=== PATIENT | female | born 1965 | race Caucasian/White ===

== ENCOUNTER 2017-08-04 04:01 | Emergency (ER) | payer OTHER | END 2017-08-04 07:20 | disposition home or self-care (01) | LOC: FTE 04:01 | DX: R05 Cough (principal) | CPT/HCPCS: 99284; Z7502 ==

== ENCOUNTER 2018-05-31 08:51 | Day surgery (SDC) | payer OTHER ==
[2018-05-31] MEDS ORDERED: MIDAZOLAM 1 MG/ML 2 ML INJ ×4 (11:19)
[2018-05-31] MEDS ORDERED: FENTAnyl 50 MCG/ML VIAL (11:19)
== END 2018-05-31 12:26 | disposition home or self-care (01) ==
LOC: GIL 08:51
DX: Z12.11 Encounter for screening for malignant neoplasm of colon (principal); K29.70 Gastritis, unspecified, without bleeding; K44.9 Diaphragmatic hernia without obstruction or gangrene; K21.9 Gastro-esophageal reflux disease without esophagitis; K64.4 Residual hemorrhoidal skin tags; K64.8 Other hemorrhoids; D12.6 Benign neoplasm of colon, unspecified
CPT/HCPCS: 43239; 88305

== ENCOUNTER 2018-06-20 05:22 | Emergency (ER) | payer OTHER ==
[2018-06-20] MEDS: KETOROLAC 30 MG INJ IM (06:27)
== END 2018-06-20 07:00 | disposition home or self-care (01) ==
LOC: FTE 05:22
DX: M79.601 Pain in right arm (principal); J06.9 Acute upper respiratory infection, unspecified
CPT/HCPCS: 96372; 99284-25

== ENCOUNTER 2019-01-05 06:36 | Emergency (ER) | payer OTHER ==
[2019-01-05] MEDS: KETOROLAC 60 MG INJ IM (07:08)
== END 2019-01-05 07:29 | disposition home or self-care (01) ==
LOC: FTE 06:36
DX: M79.602 Pain in left arm (principal); M79.601 Pain in right arm
CPT/HCPCS: 96372; 99284-25

== ENCOUNTER 2019-02-09 03:26 | Emergency (ER) | payer OTHER ==
[2019-02-09] MEDS: KETOROLAC 60 MG INJ IM (04:06)
== END 2019-02-09 04:50 | disposition home or self-care (01) ==
LOC: FTE 04:50
DX: M79.601 Pain in right arm (principal); M79.602 Pain in left arm; M19.90 Unspecified osteoarthritis, unspecified site
CPT/HCPCS: 96372; 99284-25